=== PATIENT | female | born 1975 | race Two or more races ===

== ENCOUNTER 2017-08-03 10:18 | Inpatient (IN) | payer MEDICARE, OTHER ==
[~2017-08-03] VITALS: Ht 154.9 cm; Wt 67.6 kg
--- NOTE | 2017-08-03 10:21 | NUR ---
HIEU FROM HOME DT GENERALIZED WEAKNESS "FEELING SICK", NAUSEA AND VOMITTING. PATIENT IS AWAKE AND ALERT,. NOT IN DISTRESS. SKIN IS WARM TO TOUCH AND NON DIAPHORETIC. PATIENT IS AFEBRILE. VSS
--- NOTE | 2017-08-03 10:26 | NUR ---
DR. LEGGETT AT BEDSIDE.
[2017-08-03] MEDS ORDERED: IV NS 0.9% 1,000 ML BAG IV ONE ×2 (10:30→12:00)
[2017-08-03] MEDS ORDERED: FAMOTIDINE/PF INJ 20 MG/2 ML VIAL IV ONE ×2 (10:30→10:41)
[2017-08-03] MEDS ORDERED: KETOROLAC TROMETHAMINE INJ 30 MG/ML VIAL IV ONE (10:30)
[2017-08-03] MEDS ORDERED: ONDANSETRON HCL/PF 4 MG/2 ML VIAL IVP ONE (10:30)
[2017-08-03] MEDS ORDERED: ONDANSETRON HCL/PF 4 MG/2 ML VIAL ONE (10:41)
[2017-08-03] MEDS ORDERED: KETOROLAC TROMETHAMINE 15 MG/ML VIAL ONE (10:41)
[2017-08-03 11:16] LABS: CALCIUM, SERUM 7.9 mg/dL (8.5-10.1); CREATININE 1.9 mg/dL (0.6-1.3); POTASSIUM 3.1 mmol/L (3.5-5.1)
[2017-08-03 11:17] LABS: INR 0.99 (0.85-1.15)
[2017-08-03 11:20] LABS: HEMATOCRIT 34 % (33-45); MEAN CORPUSCULAR HGB CONC 36 g/dl (31.0-36.0); MEAN CORPUSCULAR VOLUME 81 fL (82-100); RDW COEFFICIENT OF VARIATION 14.4 (11.5-15.0); RED BLOOD CELL COUNT(AUTO) 4.12 MIL/uL (4.0-5.2); WHITE BLOOD COUNT (AUTO) 23.3 K/uL (4.3-11.0)
[2017-08-03 11:22] LABS: ALBUMIN 1.7 g/dL (3.4-5.0); BILIRUBIN,DIRECT 7.3 mg/dL (0.0-0.2); BILIRUBIN,TOTAL 8.1 mg/dL (0.2-1.0); TOTAL PROTEIN, SERUM 6.1 g/dL (6.4-8.2)
[2017-08-03 11:24] LABS: APPEARANCE,URINE Slightly Cloudy (CLEAR); BILIRUBIN,URINE LARGE (NEGATIVE); BLOOD, URINE Moderate Ery/uL (NEGATIVE); COLOR,URINE Dark (YELLOW); KETONES,URINE Negative (NEGATIVE); LEUKOCYTE ESTERASE ,URINE Large (NEGATIVE); NITRITE, URINE Negative (NEGATIVE); PH,URINE 6.5 (5.0-8.0); PROTEIN,URINE 30 mg/dl (NEGATIVE); UGLUCOSE Negative (NEGATIVE)
[2017-08-03 11:27] LABS: PLATELET COUNT (AUTO) 42 /CMM (150-450)
[2017-08-03] MEDS ORDERED: FLUV100T3 PO (11:42)
[2017-08-03] MEDS ORDERED: OLAN15TA3 PO (11:42)
[2017-08-03] MEDS ORDERED: CLON1TAB5 PO (11:42)
[2017-08-03] MEDS ORDERED: PIPERACILLIN /TAZOBACTAM 3.375 G VIAL IV ONE (11:55)
[2017-08-03 11:56] LABS: SQUAMOUS EPITHELIAL CELL,UR Many /HPF (None Seen)
[2017-08-03 11:57] LABS: BACTERIA,URINE Moderate /HPF (None Seen)
[2017-08-03] MEDS ORDERED: PIPERACILLIN /TAZOBACTAM 3.375 G in IV D5W 50 ML IV ONE (12:00)
[2017-08-03 12:06] LABS: BAND % (MANUAL) 1 % (0.0-5.0); LYMPHOCYTES % (MANUAL) 5 % (16-48); MONOCYTES % (MANUAL) 5 % (0-11.0); NEUTROPHILS % (MANUAL) 89 (42-76)
--- NOTE | 2017-08-03 12:24 | NUR ---
TELE 327-2 FOR RENAL FAILURE, DARIA HODGE ADMITTING
--- NOTE | 2017-08-03 13:50 | NUR ---
MILK TRUCK DRIVER ADMITTING NOTES PATIENT IN BED AWAKE AND ALERT; VERBALLY RESPONSIVE. ABLE TO MAKE NEEDS KNOWN. NO COMPLAINTS OF PAIN OR DISCOMFORT. NO APPARENT DISTRESS. BREATHING EVEN AND UNLABORED. ORIENTED TO THE USE OF AMENITIES. AMBULATORY. CHILI PEPPER GRINDER DARIA HODGE AT BEDSIDE AND DISCUSSED PLAN OF CARE. PATIENT WITH ORDER FOR HIDA SCAN AT 1730PM TODAY. NPO TILL FURTHER ORDERS. KEPT COMFORTABLE. SAFETY PRECAUTIONS OBSERVED. BED ON LOWEST POSITION. CALL LIGHT WITHIN REACH.
[2017-08-03 14:00] VITALS: BP 135/75
[2017-08-03] MEDS ORDERED: MAGNESIUM HYDROXIDE 30 ML UDC PO PRN (14:30)
[2017-08-03] MEDS ORDERED: MAG HYDROX/AL HYDROX/SIMETH 30 ML UDC PO PRN (14:30)
[2017-08-03] MEDS ORDERED: ONDANSETRON HCL/PF 4 MG/2 ML VIAL IV PRN (14:30)
[2017-08-03] MEDS ORDERED: ZOLPIDEM TARTRATE 5 MG TABLET PO PRN (14:30)
[2017-08-03] MEDS ORDERED: Z GUARD REMEDY 2 OZ OINT TP PRN (14:30)
[2017-08-03] MEDS ORDERED: ENOXAPARIN SODIUM 40 MG/0.4 ML DISP.SYRIN SQ SCH (14:30)
[2017-08-03 16:00] VITALS: BP 114/66
[2017-08-03] MEDS ORDERED: MORPHINE SULFATE INJ 4 MG/ML DISP.SYRIN IV PRN (16:00)
[2017-08-03] MEDS ORDERED: OLANZAPINE 5 MG TABLET PO SCH (18:00)
--- NOTE | 2017-08-03 18:51 | NUR ---
SENIOR NETWORK ARCHITECT CLOSING NOTES PATIENT CURRENTLY STILL AT [facility] SCAN. WILL ENDORSE TO ONCOMING RN FOR CONTINUITY OF CARE
--- NOTE | 2017-08-03 19:20 | NUR ---
RN INITIAL NOTES: RECEIVED REPORT FROM BATOOL NEWMAN, PT IN BED, AWAKE, A/O X3 ON RA RESPIRATION EVEN AND UNLABORED, DENIES ANY PAIN AT THIS TIME, EXCEPT FOR HER COMPLAINTS OF FEELING COLD. PT ON NPO FOR HIDA SCAN TODAY , JASPER WILL ASSISTANT FILM EDITOR THE PT AT AROUND 2100, THEN OKAY TO RESUME TO CLEAR LIQUID DIET.ON TELE MONITORING SINUS TACHYCARDIA HR 114, SAFETY PRECAUTIONS FOR FALL INITIATED, AISLINN;L LIGHT IN REACH, WILL CONTINUE MONITORING PT.
[2017-08-03] MEDS: Potassium Chloride 40 MEQ in IV NS 0.9% 1,000 ML IV PRN (19:47)
--- NOTE | 2017-08-03 19:50 | NUR ---
RN NOTES: CONTACTED PHARMACY, SPOKE TO RAMAKRISHNA, INFORMED TO PLEASE DELIVER ZOSYN FOR THE PT SCHEDULED FOR 1800, STATED HE WILL SEND IT
[2017-08-03 20:00] VITALS: BP 117/77
[2017-08-03] MEDS: MORPHINE SULFATE INJ 4 MG/ML DISP.SYRIN IV PRN (20:37)
--- NOTE | 2017-08-03 20:37 | NUR ---
PRN MORPHINE: PT C/O 11/12 UPPER AND LOWER BACK PAIN, PT ALSO HAVING CHILLS, STATED IT STARTED WHEN SHE WENT DOWN FOR PROCEDURE AT JASPER'S ROOM" PT VERBALIZED, SHE STATED THE ROOM IS FREEZING AND SOON SHE GET BACK TO THE UNIT SHE'S REALLY FEELING COLD AND HAVING CHILLS, VS TAKEN AND RECORDED, 99.0 TEMP ORALLY. SINUS TACHYCARDIA HR GOES UP TO 140, CONCRETE SWIMMING POOL INSTALLER MADE AWARE, REGARDING MONITORING PT. WILL RECHECK AFTER 30MINS.
[2017-08-03] MEDS: PIPERACILLIN /TAZOBACTAM 2.25 G in IV D5W 50 ML IV SCH (20:47)
[2017-08-03 21:20] VITALS: BP 136/78
--- NOTE | 2017-08-03 21:24 | NUR ---
RN NOTES: CALL EPIC EXCHANGE TO MADE MD AWARE OF PT'S CONDITION, HR 150, SINUS TACHYCARDIA, TEMP OF 102.9, NO BLOOD CULTURE DRAWN IN ER, PT WBC 23.3, AWAITING CALL BACK
--- NOTE | 2017-08-03 21:29 | NUR ---
RN NOTES: JASPER CAME TO MARKETING CAMPAIGN ANALYST THE PT, PT WILL HAVE HIDA SCAN HE STATED IT WILL TAKE 5MINS ONLY, JASPER ASKED TO REMOVED TELE MONITORING, HE TAKE THE PT DOWN FOR HIDA SCAN, THIS TEST WANT COMPLETED EARLIER. HOISTER MADE AWARE. PT A/O X3, NOTED TO BE JAUNDICE. AMBULATORY, PT WAS TAKEN DOWNSTAIRS VIA WHEELCHAIR.
--- NOTE | 2017-08-03 21:36 | NUR ---
RN NOTES: GALLERY MANAGER MD CURRENTLY IN THE UNIT, DISCUSSED THE CONDITION OF THE PT, HE WILL PUT IN THE ORDERS
--- NOTE | 2017-08-03 21:40 | NUR ---
RN NOTES: PT BACK FROM HIDA SCAN, VS STABLE, CONNECTED BACK TO TELE MONITORING, PT REQUESTING FOR FOOD, WARM UP HER FOOD/BROTH PT ON CLEAR LIQUID DIET
--- NOTE | 2017-08-03 22:11 | NUR ---
RN NOTES: LAB CAME TO DRAW BLOOD FOR CULTURE
[2017-08-03] MEDS: OLANZAPINE 5 MG TABLET PO SCH (22:14)
[2017-08-03] MEDS: ACETAMINOPHEN 325 MG TABLET PO PRN (22:17)
--- NOTE | 2017-08-03 22:17 | NUR ---
PRN TYLENOL: PT TEMP IS 100.9, ORALLY, PRN TYLENOL 650MG TAB PO ADMINISTERED TO THE PT AT THIS TIME,
[2017-08-03 23:02] VITALS: BP 117/75
[2017-08-03] MEDS: clonazePAM 1 MG TABLET PO PRN (23:10)
--- NOTE | 2017-08-03 23:10 | NUR ---
PRN KLONOPIN: PT C/O ANXIETY, PRN KLONOPIN 1MG PO TAB ADMINISTERED AT THIS TIME.
[2017-08-03] MEDS ORDERED: IV NS 0.9% 1,000 ML BAG IV STA (23:18)
--- NOTE | 2017-08-03 23:20 | NUR ---
RN NOTES: CONTACTED EPIC DIRECTOR OF COMMUNITY EDUCATION MD, SPOKE TO MD REGARDING PT'S HR, STILL SINUS TACHYCARDIA HR 146, HIGHEST 156, VS STABLE, PT A/O X3, INFORMED MD REGARDING RESULT OF LABORATORIES, HISTORY OF THE PT, PER MD HE WILL ORDER 1L NS BOLUS.
[2017-08-04] VITALS (7 sets, daily range): BP systolic 111–142; BP diastolic 61–89
--- NOTE | 2017-08-04 00:30 | NUR ---
RN NOTES: 1L NS BOLUS COMPLETED.
[2017-08-04] MEDS: PIPERACILLIN /TAZOBACTAM 2.25 G in IV D5W 50 ML IV SCH ×2 (01:04→06:08)
--- NOTE | 2017-08-04 03:30 | NUR ---
rn notes: pt sleeping, no sob noted, sinus tachycardia hr 109
--- NOTE | 2017-08-04 06:48 | NUR ---
RN CLOSING NOTES: PT IN BED, AWAKE, REMAINS A/O X3 ON 2L VIA NC DENIES ANY SOB, LATEST TEMP IS 98.9. DENIES ANY PAIN OR DISCOMFORT AT THIS TIME, IV ACCESS REMAINS PATENT AND FLUSHING WELL, INFUSING WITH NS +40MEQ KCL AT 75ML/HR. ON SINUS TACHYCARDIA HR 115. PT REMAINS JAUNDICE WITH ICTERIC SCLERA. NO N/V NOTED THROUGHOUT THE SHIFT. VS REMAINS STABLE, NEEDS ATTENDED, FOR GI CONSULT, POSSIBLE MRCP?, SAFETY PRECAUTIONS FOR FALL REMAINS ENGAGED, CALL LIGHT IN REACH, WILL ENDORSE TO DAY RN FOR GAUTAM.
[2017-08-04 07:14] LABS: HEMATOCRIT 29 % (33-45); HEMOGLOBIN 10.3 g/dL (11.5-14.8); MEAN CORPUSCULAR HGB CONC 35 g/dl (31.0-36.0); MEAN CORPUSCULAR VOLUME 83 fL (82-100); PLATELET COUNT (AUTO) 59 /CMM (150-450); RDW COEFFICIENT OF VARIATION 15.8 (11.5-15.0); RED BLOOD CELL COUNT(AUTO) 3.52 MIL/uL (4.0-5.2); WHITE BLOOD COUNT (AUTO) 21.5 K/uL (4.3-11.0)
--- NOTE | 2017-08-04 07:30 | NUR ---
AM RN NOTE Received patient sleeping comfortably in her bed. On O2 2L/min via NC. Resp even and non-labored. IV site intact and patent and continue on IV fluids. Pt on tele monitor. Pt with jaundice and V/S BP142/89 T98.1 P117 R20 O2 sat 97%. Bed in low locked position. Will continue to monitor.
[2017-08-04 07:49] LABS: CALCIUM, SERUM 7.4 mg/dL (8.5-10.1); CREATININE 1.7 mg/dL (0.6-1.3); MAGNESIUM 2.1 mg/dL (1.8-2.4); PHOSPHORUS 3.2 mg/dL (2.5-4.9); POTASSIUM 3.3 mmol/L (3.5-5.1)
[2017-08-04 09:32] LABS: LYMPHOCYTES % (MANUAL) 6 % (16-48); MONOCYTES % (MANUAL) 7 % (0-11.0); NEUTROPHILS % (MANUAL) 87 (42-76)
[2017-08-04] MEDS ORDERED: FEE PK DOSING 1 MIN EA MC ONE (10:24)
[2017-08-04] MEDS ORDERED: MEROPENEM 500 MG in IV NS 0.9% 50 ML IV SCH (10:30)
[2017-08-04 11:27] LABS: ALBUMIN 1.5 g/dL (3.4-5.0); BILIRUBIN,DIRECT 6.9 mg/dL (0.0-0.2); BILIRUBIN,TOTAL 7.8 mg/dL (0.2-1.0); TOTAL PROTEIN, SERUM 5.2 g/dL (6.4-8.2)
[2017-08-04] MEDS ORDERED: MEROPENEM 1 G in IV NS 0.9% 100 ML IV SCH (11:30)
[2017-08-04] MEDS: MORPHINE SULFATE INJ 4 MG/ML DISP.SYRIN IV PRN (11:49)
[2017-08-04] MEDS ORDERED: VANCOMYCIN 1.5 GM in IV NS 0.9% 500 ML IV ONE (12:00)
[2017-08-04] MEDS ORDERED: IV NS 0.9% 500 ML IV ONE (12:00)
[2017-08-04] MEDS: ACETAMINOPHEN 325 MG TABLET PO PRN ×2 (12:27→20:08)
--- NOTE | 2017-08-04 12:30 | NUR ---
AM RN NOTE Pt awake noted warm to touch, temp 99.8 and pt requested for PRN Tylenol. PRN Tylenol given as ordered. Will re-check temp.
--- NOTE | 2017-08-04 12:35 | NUR ---
AM RN NOTE Pt scheduled for MRCP and placed on NPO status per X-ray tech.
--- NOTE | 2017-08-04 13:07 | NUR ---
[facility].
--- NOTE | 2017-08-04 13:08 | NUR ---
[facility]
[2017-08-04 13:13] LABS: GAMMA GLUTAMYL TRANSFERASE 231 U/L (5-85)
--- NOTE | 2017-08-04 13:25 | NUR ---
AM RN NOTE MRCP checklist done and pt's sister (Leydi) signed the checklist after pt's approval.
--- NOTE | 2017-08-04 13:31 | NUR ---
AM RN NOTE Re-check temp 99.0 and cooling measures in place. Pt continue on bolus IV as ordered. Cont on NPO status.
[2017-08-04] MEDS ORDERED: METRONIDAZOLE 500MG/ NS 100ML 500 MG in PREMIX 1 EA IV SCH (14:00)
[2017-08-04 14:16] LABS: BILIRUBIN,DIRECT 8.2 mg/dL (0.0-0.2); BILIRUBIN,TOTAL 8.8 mg/dL (0.2-1.0); TOTAL PROTEIN, SERUM 5.2 g/dL (6.4-8.2)
[2017-08-04] MEDS ORDERED: SIMETHICONE 80 MG TAB.CHEW PO PRN (15:00)
--- NOTE | 2017-08-04 15:34 | NUR ---
AM RN NOTE Patient left for MRCP procedure at this time.
[2017-08-04 16:43] LABS: ALBUMIN 1.4 g/dL (3.4-5.0)
--- NOTE | 2017-08-04 17:15 | NUR ---
AM RN NOTE Pt came back from scan and seen and assessed by Dr. Garcia with new order for psych consult, noted and carried out. Albumin 1.4 Kadie DIE MAKER made aware. DIE MAKER also made aware about psych consult order and agreed.
--- NOTE | 2017-08-04 17:38 | NUR ---
AM RN NOTE Patient noted with IV leakage, re-inserted new site on left hand #22 x1 attempt.
--- NOTE | 2017-08-04 18:10 | NUR ---
AM RN NOTE Psych consult order faxed to [facility] and spoke with Cristian.
--- NOTE | 2017-08-04 18:33 | NUR ---
AM RN NOTE Patient resting in her bed, no acute distress noted. Family at bedside. Will endorse care to next shift.
--- NOTE | 2017-08-04 18:54 | NUR ---
AM RN NOTE Patient awake, C/O feeling cold temp 99.0 and pt refused cooling measures at this time. Will endorse care to next shift.
--- NOTE | 2017-08-04 19:10 | NUR ---
RN OPENING NOTES RECEIVED PT IN BED, ASLEEP BUT EASILY AROUSABLE, PT'S FATHER AT BEDSIDE. NOTED PATIENT WITH NO SOB, IN NO ACUTE DISTRESS, SKIN IS WARM TO TOUCH. ALL PATIENT'S NEEDS ATTENDED TO AT THIS TIME, IVF INFUSING WELL ORDERED, RECEIVING 02 VIA NC @2LPM. CALL LIGHT PLACED WITHIN REACH. WILL CONTINUE TO MONITOR PT.
--- NOTE | 2017-08-04 20:08 | NUR ---
RN NOTE PT NOTED WITH AUXILIARY TEMP 98.4 AND ORAL TEMP 103.0, COOLING MEASURES APPLIED, ACETAMINOPHEN ADMINISTERED ORDERED. WILL CONTINUE TO MONITOR PT.
[2017-08-04] MEDS: Potassium Chloride 40 MEQ in IV NS 0.9% 1,000 ML IV PRN (20:20)
[2017-08-04] MEDS ORDERED: PIPERACILLIN /TAZOBACTAM 3.375 G VIAL IV ONE (21:00)
[2017-08-04] MEDS: PIPERACILLIN /TAZOBACTAM 3.375 G in IV D5W 50 ML IV SCH (21:09)
[2017-08-04] MEDS: OLANZAPINE 5 MG TABLET PO SCH (22:42)
--- NOTE | 2017-08-04 22:42 | NUR ---
RN NOTES ADMINISTERED ZYPREXA BUT PATIENT ONLY TOOK 5MG. PER PATIENT SHE ONLY TAKES 5 MG AND NOT 15 MG. EXPLAINED RISKS AND BENEFITS TO PATIENT. PATIENT CONTINUES TO INSIST THAT SHE ONLY TAKES 5 MG. RESPECTED PATIENT'S DECISION. WILL CONTINUE TO MONITOR.
[2017-08-04] MEDS: clonazePAM 1 MG TABLET PO PRN (23:32)
--- NOTE | 2017-08-04 23:33 | NUR ---
RN NOTES PATIENT VERBALIZED THAT SHE IS FEELING ANXIOUS AND ASKING FOR ANXIETY MEDICATION. ADMINISTERED CLONAZEPAM ORDERED.
--- NOTE | 2017-08-05 03:08 | NUR ---
RN NOTE NOTED PATIENT'S IV PERIPHERAL LINE TO BE DISLODGED. PER PT, SHE WAS HAVING A DREAM AND WHEN SHE WOKE UP THE IV LINE WAS DISLODGED. INSERTED NEW IV LINE ON RIGHT FOREARM G22, WITH GOOD BLOOD RETURN, FLUSHED WITH NS, PATENT, PATIENT TOLERATED PROCEDURE WELL. CONNECTED PATIENT TO IVF ORDERED, INFUSING WELL. WILL CONTINUE TO MONITOR PT.
[2017-08-05] MEDS: Potassium Chloride 40 MEQ in IV NS 0.9% 1,000 ML IV PRN ×2 (04:39→13:55)
[2017-08-05] MEDS ORDERED: PIPERACILLIN /TAZOBACTAM 3.375 G VIAL IV ONE (04:39)
[2017-08-05] MEDS: PIPERACILLIN /TAZOBACTAM 3.375 G in IV D5W 50 ML IV SCH (04:43)
--- NOTE | 2017-08-05 06:37 | NUR ---
RN CLOSING NOTES PATIENT IN BED, ASLEEP BUT EASILY AROUSABLE. BREATHING EVEN AND UNLABORED, CONTINUES TO RECEIVE O2 VIA NC @ 2LPM WITH O2 SAT WNL, IVF INFUSING WELL ORDERED ON LFA G#22. ALL PATIENT'S NEEDS ATTENDED TO THROUGHOUT THE SHIFT, IN NO ACUTE DISTRESS, AFEBRILE, NO C/O ABDOMINAL PAIN. PLACED CALL LIGHT WITHIN EASY REACH, BED IN LOW POSITION AND LOCKED IN PLACE. WILL ENDORSE TO AM SHIFT NURSE FOR CONTINUITY OF CARE. Addendum: 08/05/17 at 0735 by STEFANI STANLEY RN PATIENT NOTED WITH NO VERBALIZATION OF HURTING HERSELF OR OTHERS, NO SUICIDAL IDEATION, NO SHARP OBJECTS WITHIN REACH THROUGHOUT THE SHIFT.
--- NOTE | 2017-08-05 07:10 | NUR ---
RN INITIAL NOTES NOTES: PATIENT RESTING IN BED. NONLABORED BREATHING NOTED ON ROOM AIR. IV SITE ON RIGHT AC PATENT AND INTACT.PATIENT DENYING PAIN. BED IN LOWEST LOCKED POSITION. CALL LIGHT WITHIN REACH. DENYING SI AND HI NO SHARP OBJECTS AT BEDSIDE
[2017-08-05 08:00] VITALS: BP 123/66
[2017-08-05 08:14] LABS: HEMATOCRIT 28 % (33-45); HEMOGLOBIN 9.9 g/dL (11.5-14.8); MEAN CORPUSCULAR HGB CONC 35 g/dl (31.0-36.0); MEAN CORPUSCULAR VOLUME 83 fL (82-100); PLATELET COUNT (AUTO) 90 /CMM (150-450); RDW COEFFICIENT OF VARIATION 15.4 (11.5-15.0); RED BLOOD CELL COUNT(AUTO) 3.44 MIL/uL (4.0-5.2); WHITE BLOOD COUNT (AUTO) 24.1 K/uL (4.3-11.0)
[2017-08-05 08:38] LABS: BAND % (MANUAL) 1 % (0.0-5.0); EOSINOPHILS % (MANUAL) 2 % (0-4); LYMPHOCYTES % (MANUAL) 9 % (16-48); MONOCYTES % (MANUAL) 6 % (0-11.0); NEUTROPHILS % (MANUAL) 82 (42-76)
[2017-08-05 08:57] LABS: CALCIUM, SERUM 7.8 mg/dL (8.5-10.1); CREATININE 1.5 mg/dL (0.6-1.3); MAGNESIUM 2.1 mg/dL (1.8-2.4); PHOSPHORUS 2.3 mg/dL (2.5-4.9); POTASSIUM 4.2 mmol/L (3.5-5.1)
[2017-08-05] MEDS ORDERED: VANCOMYCIN 1 GM in IV NS 0.9% 250 ML IV SCH (09:00)
[2017-08-05 09:53] LABS: BILIRUBIN,DIRECT 7.6 mg/dL (0.0-0.2); BILIRUBIN,TOTAL 8.5 mg/dL (0.2-1.0); TOTAL PROTEIN, SERUM 5.3 g/dL (6.4-8.2)
[2017-08-05 09:56] LABS: ALBUMIN 1.4 g/dL (3.4-5.0)
--- NOTE | 2017-08-05 11:05 | NUR ---
100.5 F , TYLENOL ADMINISTERED COOLING MEASURES INITIATED
[2017-08-05] MEDS: ACETAMINOPHEN 325 MG TABLET PO PRN ×2 (11:08→20:57)
--- NOTE | 2017-08-05 11:50 | NUR ---
PATIENT CONSENTED TO HAVE DOCUMENTS OF HER CURRENT TREATMENT, DIAGNOSTIC TESTS, HER MEDICAL HISTORY WELL INFORMATION PERTAINING TO HER VISIT AT [facility] TO BE PROVIDED TO [facility]. DR HENRY MARTINEZ AND DARIA HODGE SOLAR POOL HEATING INSTALLER AT BEDSIDE WHEN PATIENT CONSENTED
--- NOTE | 2017-08-05 12:00 | NUR ---
FEVER SUBSIDED TO 98.8 F
[2017-08-05 12:06] LABS: INR 1.03 (0.87-1.13)
[2017-08-05] MEDS: PIPERACILLIN /TAZOBACTAM 2.25 G in IV D5W 50 ML IV SCH ×3 (12:55→23:44)
--- NOTE | 2017-08-05 13:27 | NUR ---
PATIENT'S FAMILY REFUSING TO PROVIDE EDARBI TO PHARMACY DAUGHTER TIMOTHY EDUCATED ON BENEFITS AND RISKS, EDUCATED THAT MEDICATION CANNOT BE LEFT AT BEDSIDE AND HAS TO BE ADMINISTERED BY A REGISTERED NURSE AT THE ORDERED TIME. FAMILY MEMBER STILL REFUSING , SHE TOOK THE PAIN MEDICATION WITH HER HOME DARIA HODGE SG AWARE AND SPOKE TO TIME FROM PHARMACY DAUGHTER ALSO REFUSING TO PROVIDE INHALER Addendum: 08/05/17 at 1557 by MICHAEL CANDELARIA RN WRONG MESSAGE- USER ERROR- NOT APPLICABLE TO PATIENT
--- NOTE | 2017-08-05 13:28 | NUR ---
WRONG MESSAGE AT 1327- USER ERROR- NOT APPLICABLE TO PATIENT
[2017-08-05] MEDS ORDERED: NEUTRA PHOS 1 POWD.PACKET PO ONE (13:30)
[2017-08-05] MEDS: MORPHINE SULFATE INJ 4 MG/ML DISP.SYRIN IV PRN ×3 (13:46→22:26)
[2017-08-05] MEDS: clonazePAM 1 MG TABLET PO PRN (15:07)
--- NOTE | 2017-08-05 15:09 | NUR ---
PATIENT STATING FEELING ANXIOUS. PATIENT ENCOURAGED TO VERBALIZE FEELINGS. DENYING SI AND HI IDEATIONS. KLONOPIN ADMINISTERED PER ORDERS
[2017-08-05 16:00] VITALS: BP 112/72
--- NOTE | 2017-08-05 16:00 | NUR ---
PATIENT STATING THAT ANXIETY HAS DECREASED
[2017-08-05] MEDS: FLUVOXAMINE MALEATE 50 MG TABLET PO SCH (17:13)
--- NOTE | 2017-08-05 18:36 | NUR ---
DIETARY CONSULT RECOMMENDED. PATIENT REFUSING CARE PLAN IMPLEMENTED. MEDICAL CARE PROVIDERS AWARE OF ALBUMIN LEVELS AND PO INTAKE
--- NOTE | 2017-08-05 19:00 | NUR ---
SAFETY PRECAUTIONS IMPLEMENTED THROUGHOUT SHIFT. NO SHARP OBJECTS AT BEDSIDE. PATIENT ENCOURAGED TO EXPRESS EMOTIONS AND FEELINGS THROUGHOUT SHIFT. DENIED SUICIDAL IDEATION AND HI IDEATIONS. DR FELICIANO NOTIFIED OF THAT. DR FELICIANO INFORMED THAT PATIENT ONLY TOOK 5 MG OF ZYPREXA LAST NIGHT. ROUNDINGS DONE EVERY 15 MINS BY STAFF
--- NOTE | 2017-08-05 19:09 | NUR ---
RN CLOSING NOTES: PATIENT RESTING IN BED. NONLABORED BREATHING NOTED ON ROOM AIR. IV SITE ON RIGHT AC PATENT AND INTACT.PATIENT DENYING PAIN. BED IN LOWEST LOCKED POSITION. CALL LIGHT WITHIN REACH. FAMILY AT BEDSIDE NO NAUSEA AND NO VOMITING NOTED DURING SHIFT. PATIENT AWAITING FOR A BED IN THE [facility]. CASE MANAGEMENT ON CASE. URINE RESIDUALS NOTED TO BE AT 131 WHEN BLADDERSCAN DONE.
--- NOTE | 2017-08-05 19:25 | NUR ---
RN OPENING NOTES PATIENT IN BED, ASLEEP BUT EASILY AROUSABLE. ALERT AND ABLE TO MAKE NEEDS KNOWN. NO SOB NOTED, BREATHING EVEN AND UNLABORED, RECEIVING O2 VIA NC @2LPM. PATIENT DENIES PAIN AND IS IN NO ACUTE DISTRESS. CONTINUES TO RECEIVE IVF ORDERED AND IS INFUSING WELL. IV SITE INTACT AND PATENT WITH NO S/S OF INFECTION OR INFILTRATION. PLACED BED IN LOW POSITION AND LOCKED IN PLACE. CALL LIGHT WITHIN REACH. FAMILY AT BEDSIDE. WILL CONTINUE TO MONITOR PT.
[2017-08-05 20:00] VITALS: BP 111/62
[2017-08-05] MEDS: IV NS 0.9% 1,000 ML IV PRN (20:59)
[2017-08-05] MEDS: OLANZAPINE 5 MG TABLET PO SCH (22:30)
[2017-08-06] MEDS: PIPERACILLIN /TAZOBACTAM 2.25 G in IV D5W 50 ML IV SCH (05:10)
[2017-08-06] MEDS: ACETAMINOPHEN 325 MG TABLET PO PRN ×2 (05:26→15:59)
--- NOTE | 2017-08-06 06:33 | NUR ---
RN CLOSING NOTES PATIENT IN BED, ASLEEP BUT EASILY AROUSABLE, ALERT AND ORIENTED X 3, ABLE TO MAKE NEEDS KNOWN, NO SOB NOTED, BREATHING EVEN AND UNLABORED, DENIES PAIN AND IS IN NO ACUTE DISTRESS. ALL PATIENT'S NEEDS ATTENDED TO THROUGHOUT THE SHIFT, CONTINUES TO RECEIVE IVF ORDERED VIA IVP ON RFA G#22, INFUSING WELL. PT RECEIVING O2 VIA NC @2LPM, O2 SAT WNL. PLACED PATIENT'S BED IN LOW POSITION AND LOCKED IN PLACE. CALL LIGHT WITHIN EASY REACH. WILL ENDORSE TO AM SHIFT NURSE FOR CONTINUITY OF CARE.
--- NOTE | 2017-08-06 07:00 | NUR ---
RN INITIAL NOTES: Received patient in bed, asleep, but easily arousable. Alert, oriented x 3. Patient able to make needs known. Breathing even and unlabored. O2 at 2L/HR via NC. Peripheral IV on R forearm infusing via IVP, gauge 22. Call light within reach. Bed in low, locked position. Patient stable as endorsed by the caustic cresylate shift superintendent RN.
[2017-08-06 08:00] VITALS: BP 128/77
[2017-08-06] MEDS: FLUVOXAMINE MALEATE 50 MG TABLET PO SCH ×2 (09:06→17:24)
[2017-08-06] MEDS: IV NS 0.9% 1,000 ML IV PRN (09:25)
[2017-08-06 09:45] LABS: HEMATOCRIT 27 % (33-45); HEMOGLOBIN 9.5 g/dL (11.5-14.8); MEAN CORPUSCULAR HGB CONC 35 g/dl (31.0-36.0); MEAN CORPUSCULAR VOLUME 83 fL (82-100); PLATELET COUNT (AUTO) 134 /CMM (150-450); RED BLOOD CELL COUNT(AUTO) 3.28 MIL/uL (4.0-5.2); WHITE BLOOD COUNT (AUTO) 19.5 K/uL (4.3-11.0)
[2017-08-06] MEDS: MORPHINE SULFATE INJ 4 MG/ML DISP.SYRIN IV PRN (09:52)
[2017-08-06 10:03] LABS: BILIRUBIN,TOTAL 7.5 mg/dL (0.2-1.0); CREATININE 1.3 mg/dL (0.6-1.3); TOTAL PROTEIN, SERUM 5.7 g/dL (6.4-8.2)
[2017-08-06 10:04] LABS: ALBUMIN 1.4 g/dL (3.4-5.0)
[2017-08-06 10:30] LABS: EOSINOPHILS % (MANUAL) 1 % (0-4); LYMPHOCYTES % (MANUAL) 7 % (16-48); MONOCYTES % (MANUAL) 3 % (0-11.0); NEUTROPHILS % (MANUAL) 89 (42-76)
[2017-08-06] MEDS: clonazePAM 1 MG TABLET PO PRN ×2 (12:23→19:51)
[2017-08-06 12:35] LABS: BILIRUBIN,DIRECT 6.2 mg/dL (0.0-0.2); BILIRUBIN,TOTAL 7.1 mg/dL (0.2-1.0)
[2017-08-06] MEDS: PIPERACILLIN /TAZOBACTAM 3.375 G in IV D5W 50 ML IV SCH ×3 (12:48→23:16)
[2017-08-06] MEDS ORDERED: PIPE3.379 IV (14:16)
[2017-08-06] MEDS ORDERED: MORP2SYR3 IV (14:16)
[2017-08-06 16:00] VITALS: BP 129/77
--- NOTE | 2017-08-06 19:13 | NUR ---
RN CLOSING NOTES: Patient in bed, resting with family/friends at bedside. Alert, oriented x 3. On O2 @ 2L via NC, saturating well. IV access on right forearm g22, patent and intact. All due medications given as ordered. All needs attended to. Call light within reach. Bed in low, locked position. Will endorse to the [facility] shift lead RN for continuity of care.
--- NOTE | 2017-08-06 19:25 | NUR ---
RM OPENING NOTES RECEIVED PT IN BED, AWAKE, ALERT AND ORIENTED X 3, FAMILY AT BEDSIDE, DENIES PAIN, NO SOB NOTED, ON O2 VIA NC @2LPM O2 SAT WNL AND IN NO ACUTE DISTRESS. ALL PATIENT'S NEEDS ATTENDED TO AT THIS TIME. BED PLACED IN LOW POSITION, LOCKED IN PLACE AND CALL LIGHT PLACED WITHIN EASY REACH. WILL CONTINUE TO MONITOR PATIENT.
--- NOTE | 2017-08-06 19:51 | NUR ---
RN NOTES PATIENT VERBALIZED THAT SHE IS FEELING ANXIOUS, ENCOURAGED PATIENT TO EXPRESS FEELINGS, FAMILY AT BEDSIDE. ATTENDED TO PATIENT'S NEEDS. PT CONTINUES TO VERBALIZE THAT SHE IS FEELING ANXIOUS AND IS REQUESTING FOR KLONOPIN. ADMINISTERED KLONOPIN ORDERED. WILL CONTINUE TO MONITOR PT.
[2017-08-06 20:10] VITALS: BP 126/78
[2017-08-06] MEDS: OLANZAPINE 5 MG TABLET PO SCH (22:28)
[2017-08-07] MEDS: PIPERACILLIN /TAZOBACTAM 3.375 G in IV D5W 50 ML IV SCH ×3 (05:39→17:18)
--- NOTE | 2017-08-07 06:50 | NUR ---
RN CLOSING NOTES PATIENT IN BED, ASLEEP BUT EASILY AROUSABLE, NO SOB, BREATHING EVEN AND UNLABORED, AFEBRILE, IN NO ACUTE DISTRESS. ALL PATIENT'S NEEDS ATTENDED TO THROUGHOUT THE SHIFT. PT WAITING FOR AVAILABLE BED TO TRANSFER TO [facility]. PLACED CALL LIGHT WITHIN EASY REACH. BED IN LOW POSITION AND LOCKED IN PLACE. WILL ENDORSE TO AM SHIFT NURSE FOR CONTINUITY OF CARE.
--- NOTE | 2017-08-07 07:00 | NUR ---
MS RN INITIAL NOTES: Received patient on bed, asleep, but easily arousable. On O2 at 2L/hr via NC.Not in distress. Breathing even and unlabored. No complaints of pain or discomfort as of this time. Call aden within reach. Bed in low, locked position. Patient stable as endorsed byt the thermospray operator RN.
[2017-08-07 08:00] VITALS: BP 126/78
[2017-08-07] MEDS: FLUVOXAMINE MALEATE 50 MG TABLET PO SCH ×2 (08:54→16:36)
[2017-08-07 09:59] LABS: HEMATOCRIT 24 % (33-45); HEMOGLOBIN 8.4 g/dL (11.5-14.8); MEAN CORPUSCULAR HGB CONC 35 g/dl (31.0-36.0); MEAN CORPUSCULAR VOLUME 82 fL (82-100); PLATELET COUNT (AUTO) 222 /CMM (150-450); RDW COEFFICIENT OF VARIATION 15.2 (11.5-15.0); RED BLOOD CELL COUNT(AUTO) 2.92 MIL/uL (4.0-5.2)
[2017-08-07 10:10] LABS: BILIRUBIN,TOTAL 4.3 mg/dL (0.2-1.0); CALCIUM, SERUM 8.1 mg/dL (8.5-10.1); CREATININE 1.2 mg/dL (0.6-1.3); POTASSIUM 3.6 mmol/L (3.5-5.1); TOTAL PROTEIN, SERUM 5.8 g/dL (6.4-8.2)
[2017-08-07 10:12] LABS: BAND % (MANUAL) 1 % (0.0-5.0); LYMPHOCYTES % (MANUAL) 7 % (16-48); NEUTROPHILS % (MANUAL) 89 (42-76)
[2017-08-07 10:13] LABS: EOSINOPHILS % (MANUAL) 1 % (0-4); MONOCYTES % (MANUAL) 2 % (0-11.0)
[2017-08-07 10:26] LABS: ALBUMIN 1.4 g/dL (3.4-5.0)
[2017-08-07] MEDS: MORPHINE SULFATE INJ 4 MG/ML DISP.SYRIN IV PRN (12:11)
[2017-08-07] MEDS: clonazePAM 1 MG TABLET PO PRN ×2 (14:29→21:46)
[2017-08-07 16:00] VITALS: BP 120/70
--- NOTE | 2017-08-07 18:58 | NUR ---
MS RN CLOSING NOTES: Patient in bed, resting, family at bedside. Alert, oriented x 4. No complaints of discomfort as of this time. On O2 @ 2L via NC, saturating well. All due medications given as ordered. All needs attended to. IV access on RFA, patent and intact, g#22. Call aden within reach. Bed in low, locked position. Awaiting bed at [facility]. Will endorse to senior project manager RN for continuity of care
--- NOTE | 2017-08-07 19:15 | NUR ---
MS RN OPENING NOTE RECEIVED PATIENT IN BED, ALERT ORIENTED X4, ON ROOM AIR, TOLERATING WELL, IN NO APPARENT DISTRESS OR DISCOMFORT AT THIS TIME. RESPIRATIONS EVEN AND UNLABORED, DENIES PAIN AT THIS TIME. RIGHT FA IVC 22G, PATENT AND INTACT, NO FLUIDS RUNNING AT THIS TIME. PATIENT IS WAITING TO BE TRANSFERRED TO [facility] SOON A BED IS AVAILABLE. STABLE, WILL ADMINISTER ALL DUE MEDICATION AND CONTINUE CARE UNTIL TRANSFER. FAMILY AT BEDSIDE, SAFETY MEASURES IN PLACE, BED IN LOW LOCKED POSITION, SIDE RAILS UP X2, CALL LIGHT WITHIN EASY REACH. WILL CONTINUE TO MONITOR.
[2017-08-07 20:00] VITALS: BP 116/76
--- NOTE | 2017-08-07 20:00 | NUR ---
CALL RECEIVED FROM ANNAMARIA AT [facility] REGARDING AVAILABLE BED FOR THE PATIENT TO BE TRANSFERRED TO. PATIENT IS GOING TO [facility] PRAVEENA ANDRESSA SuzieAlyssa , RM 3884, UNDER CARE OF DR. BIA MD. WILL PREPARE THE PATIENT AND ALL THE TRANSFER PAPERS.
--- NOTE | 2017-08-07 20:00 | NUR ---
PATIENT WITH ORAL TEMPERATURE OF 100.2. COOLING MEASURES APPLIED, WILL CONTINUE TO MONITOR.
[2017-08-07] MEDS: ACETAMINOPHEN 325 MG TABLET PO PRN (20:12)
--- NOTE | 2017-08-07 20:15 | NUR ---
PATIENT STATES SHE DOES NOT WANT TO KEEP THE COLD PACKS AROUND HER BODY IT MAKES HER ABDOMEN HURT AGAIN. TYLENOL ADMINISTERED TO HELP WITH FEVER. WILL CONTINUE TO MONITOR.
--- NOTE | 2017-08-07 21:30 | NUR ---
PATIENT TEMPERATURE DECREASED ONLY TO 100.1, HEART RATE 102, BP 116/76 O2 SAT 95%. DOES NOT COMPLAIN OF PAIN. IN NO APPARENT DISTRESS OR DISCOMFORT AT THIS TIME. PATIENT IS TO BE PICKED UP BY AMBULANCE FOR TRANSFER AT 10PM. WILL ENCOURAGE COOLING PACKS AND OTHER COOLING MEASURES MEANWHILE AND CONTINUE TO MONITOR.
--- NOTE | 2017-08-07 21:45 | NUR ---
REPORT GIVEN TO JOI AT [facility] REGARDING PATIENT'S CONDITION AND ANTICIPATED TRANSFER.
[2017-08-07] MEDS: OLANZAPINE 5 MG TABLET PO SCH (21:46)
--- NOTE | 2017-08-07 22:20 | NUR ---
MS CALL BOX WIRER NOTES PATIENT WAS PICKED UP BY AMBULANCE AT 10:00PM. ALERT ORIENTED X4. VITAL SIGNS: BP 126/70, HEART RATE OF 102, ORAL TEMPERATURE IS 100.2, NO CHANGES NOTED AFTER COOLING MEASURES AND ANTIPYRETIC MEDICATION. IN NO APPARENT DISTRESS OR DISCOMFORT AT THE TIME OF TRANSFER. RESPIRATIONS EVEN AND UNLABORED. PATIENT DENIES PAIN AT THIS TIME. PATIENT IS STABLE. REPORT GIVEN TO EMT REGARDING PATIENTS CONDITION, ALL THE DISCHARGE PAPERWORK WAS PROVIDED WITH THE PATIENT, ALL THE BELONGINGS WAS CHECKED AND ACCOUNTED FOR BEFORE TRANSFER. ALL THE DUE MEDICATIONS WERE GIVEN TO PATIENT AT THE APPROPRIATE TIMES BEFORE TRANSFER. RIGHT FA 22G IVC IN PLACE, SL. LEFT IN PLACE FOR THE TRANSFER TO THE OTHER FACILITY. PATIENT WAS KEPT CLEAN AND COMFORTABLE, ALL NEEDS WERE ATTENDED WHILE UNDER MY CARE. PATIENT LEFT THE UNIT ON A GURNEY WITH THE EMT AT 10:20 PM.
== END 2017-08-07 22:20 | disposition short-term general hospital (02) | DRG 871 ==
LOC: ER 10:19 → TELE 12:43 → MED 08-04 08:42
PROVIDERS: ADMIT Nurse Practitioner Acute Care; ATTEND Nurse Practitioner Acute Care
DX: A41.9 Sepsis, unspecified organism (principal); N17.0 Acute kidney failure with tubular necrosis; K80.12 Calculus of gallbladder with acute and chronic cholecystitis without obstruction; E46 Unspecified protein-calorie malnutrition; F33.3 Major depressive disorder, recurrent, severe with psychotic symptoms; E87.1 Hypo-osmolality and hyponatremia; N13.6 Pyonephrosis; N10 Acute pyelonephritis; R17 Unspecified jaundice; N20.2 Calculus of kidney with calculus of ureter; D69.59 Other secondary thrombocytopenia; E83.51 Hypocalcemia; E86.0 Dehydration; F15.10 Other stimulant abuse, uncomplicated; F17.200 Nicotine dependence, unspecified, uncomplicated; E87.6 Hypokalemia; F12.10 Cannabis abuse, uncomplicated; R73.9 Hyperglycemia, unspecified; B96.4 Proteus (mirabilis) (morganii) as the cause of diseases classified elsewhere; F39 Unspecified mood [affective] disorder; D64.9 Anemia, unspecified; Z68.28 Body mass index [BMI] 28.0-28.9, adult
CPT/HCPCS: 36415; 71045-TC; 71250-TC; 74181-TC; 76705-TC; 78226; 80048-TC; 80053-TC; 80061-TC; 80074; 80076-TC; 80305; 81000-TC; 82140-TC; 82247-TC; 82248-TC; 82977-TC; 83010; 83516; 83615-TC; 83690-TC; 83735-TC; 84100-TC; 84703-TC; 85025-TC; 85610-TC; 85730-TC; 87040-TC; 87081-TC; 87086-TC; 87186-TC; A4216; A4606; A9537; J1885; J2185; J2270; J2405; J2543; J3370; J3480; J3490; J7030; J7040; J7050; J7060; Z7610

== ENCOUNTER 2020-06-06 18:38 | Emergency (ER) | payer MEDICARE, OTHER ==
[~2020-06-06] VITALS: Ht 152.4 cm; Wt 55.3 kg
[~2020-06-06 18:38] MED LIST: CLON1TAB12 PO; FLUV100T3 PO; MORP2SYR IV; OLAN15TA3 PO; PIPE3.379 IV
--- NOTE | 2020-06-06 18:54 | NUR ---
C/O VOMITING WITH SMALL AMOUNT OF BLOOD X 10 DAYS. PT AAOX4, VSS. RR EVEN & UNLABORED. DENIES CP, SOB, DIZZINESS, N/V/D AT THIS TIME. AWAITING EVAL BY ERMD & WILL CONT TO MONITOR.
[2020-06-06] MEDS ORDERED: ONDANSETRON HCL/PF 4 MG/2 ML VIAL ONE (19:17)
[2020-06-06] MEDS ORDERED: IV NS 0.9% 1,000 ML BAG IV ONE (19:30)
[2020-06-06] MEDS ORDERED: ONDANSETRON HCL/PF 4 MG/2 ML VIAL IVP ONE (19:30)
[2020-06-06 19:54] LABS: ALANINE AMINOTRANSFERASE 19 U/L (12-78); ALBUMIN 3.6 g/dL (3.4-5.0); ALKALINE PHOSPHATASE 91 U/L (46-116); ASPARTATE AMINOTRANSFERASE 10 U/L (15-37); BILIRUBIN,DIRECT 0.1 mg/dL (0.0-0.2); BILIRUBIN,TOTAL 0.2 mg/dL (0.2-1.0); CALCIUM, SERUM 8.8 mg/dL (8.5-10.1); CARBON DIOXIDE 26 mmol/L (21-32); CHLORIDE 103 mmol/L (98-107); GLUCOSE 78 mg/dL (74-106); LIPASE 173 U/L (73-393); POTASSIUM 4.1 mmol/L (3.5-5.1); SODIUM SERUM 136 mmol/L (136-145); TOTAL PROTEIN, SERUM 7.6 g/dL (6.4-8.2); UREA NITROGEN, BLOOD 15 mg/dL (7-18)
[2020-06-06 20:02] LABS: BASOPHILS % (AUTO) 0.4 % (0.0-2.0); HEMATOCRIT 45 % (33-45); HEMOGLOBIN 14.8 g/dL (11.5-14.8); LYMPHOCYTES # (AUTO) 2.6 /CMM (0.8-4.8); LYMPHOCYTES % (AUTO) 25.3 % (20.0-44.0); MEAN CORPUSCULAR HGB CONC 33 g/dl (31.0-36.0); MEAN CORPUSCULAR VOLUME 91 fL (82-100); MONOCYTES # (AUTO) 0.7 /CMM (0.1-1.30); MONOCYTES % (AUTO) 7.1 % (2.0-12.0); NEUTROPHILS # (AUTO) 6.6 /CMM (1.8-8.9); NEUTROPHILS % (AUTO) 64.2 % (43.0-81.0); PLATELET COUNT (AUTO) 245 /CMM (150-450); RED BLOOD CELL COUNT(AUTO) 4.91 MIL/uL (4.0-5.2); WHITE BLOOD COUNT (AUTO) 10.2 K/uL (4.3-11.0)
[2020-06-06] MEDS ORDERED: ONDA4TAB5 PO (20:38)
--- NOTE | 2020-06-06 20:57 | NUR ---
Patient discharged to home in stable condition. Written and verbal after care instructions given. Patient verbalizes understanding of instruction. IV removed. Catheter intact and site benign. Pressure and 4x4 applied to site. No bleeding noted.
[2020-06-06 20:58] VITALS: BP 127/86
== END 2020-06-06 20:58 | disposition home or self-care (01) ==
LOC: EDBD 18:43 → ER 18:43
DX: R11.2 Nausea with vomiting, unspecified (principal); Z79.899 Other long term (current) drug therapy
CPT/HCPCS: 36415; 80048; 80076; 83690; 84484; 85025; 96361; 96374; 99283; J2405; J7030